=== PATIENT | female | born 1940 | race American Indian/Alaskan Native ===

== ENCOUNTER 2016-12-19 22:02 | Inpatient (IN) | payer MEDICARE ==
[2016-12-19 23:41] LABS: Basophils % (Auto) 0.6 % (0.0-1.8); Eosinophils % (Auto) 0.9 % (0.0-4.3); Hematocrit 36.4 % (30.3-42.9); Hemoglobin 11.6 gm/dl (10.1-14.3); Mean Corpuscular HGB Conc 32 % (30-34); Mean Corpuscular Hemoglobin 30 pg (28-32); Mean Corpuscular Volume 93 fl (79-97); Red Blood Count 3.92 M/mm3 (3.65-5.03); Red Cell Distribution Width 15.4 % (13.2-15.2); White Blood Count 11.9 K/mm3 (4.5-11.0)
[2016-12-20] MEDS ORDERED: MORPHINE IV ONE (00:11)
--- NOTE | 2016-12-20 00:13 | Emergency Department Report ---
HPI - General Chief Complaint: Weakness Time Seen by Provider: 12/19/16 22:23 - HPI HPI: The patient is a 76-year-old female with a history of diabetes who presents for evaluation of generalized weakness and abdominal pain. The patient reports 1 week of progressive generalized weakness, exacerbated with exertion or physical activity, moderate to severe, improved with rest. She has secondary complaint of epigastric and periumbilical abdominal pain, moderate to severe, squeezing and cramping in quality, worse with movement of the abdomen. Family members reported to EMS that the patient exhibited some drooling and appeared change from her baseline mental status possibly 2-3 hours prior to arrival. The patient denies fever, headache, neck pain, chest pain, dyspnea, paresthesias, lateralizing motor deficit, diarrhea, blood in the stool, dark tarry stool, dysuria, hematuria, flank pain, or other focal neurological deficit. ED Past Medical Hx - Past Medical History Previous Medical History?: Yes Hx Diabetes: Yes Hx GERD: Yes Hx Renal Disease: Yes Hx Psychiatric Treatment: Yes (Dementia, Parkinson's, Schizophrenia) Additional medical history: Hyperlipidemia, - Surgical History Past Surgical History?: Yes Additional Surgical History: Hysty - Social History Smoking Status: Never Smoker Substance Use Type: None ED Review of Systems ROS: Stated complaint: GENERAL WEAKNESS Other details as noted in HPI Constitutional: reports weakness, denies: fever ENT: denies: throat or neck pain Respiratory: denies: cough, shortness of breath Cardiovascular: denies: chest pain Endocrine: denies unexplained weight loss or gain Gastrointestinal: reports abdominal pain, nausea Genitourinary: denies: dysuria Musculoskeletal: denies: leg swelling Skin: denies: rash Neurological: denies: headache Hematological/Lymphatic: denies: easy bleeding or easy bruising Psych: denies sadness or hopelessness Physical Exam - Physical Exam Vital Signs: Vital Signs 12/19/16 12/19/16 22:16 22:40 Temperature 98.1 F Pulse Rate 58 L Respiratory 12 16 Rate Blood Pressure 95/76 Blood Pressure 95/76 [Right] O2 Sat by Pulse 100 99 Oximetry Physical Exam: General: well-nourished, well-developed, no acute distress Head: Normocephalic, atraumatic Eyes: normal sclera ENT: Mucous membranes are pale and dry, EOMI, PERRL Neck: No neck stiffness, no cervical adenopathy Respiratory: Breath sounds equal bilaterally, no wheezing, rales, or rhonchi Cardio: S1 and S2 present, no murmurs, rubs, gallops, capillary refill is delayed Abdomen: Normoactive bowel sounds, soft abdomen, epigastric and periumbilical tenderness to palpation present, no rigidity, no guarding or rebound tenderness , no pain in McBurney's point Musc: No pitting edema Skin: No rash Neuro: Alert and oriented to self and situation, no facial drooping, normal speech, no pronator drift, no obvious gross motor or sensation deficit in the arms or legs, reflexes 2+ symmetric on DTR testing, no coordination deficit with finger to nose testing, no obvious gross neuro deficit Psych: Normal affect ED Course Vital Signs 12/19/16 12/19/16 22:16 22:40 Temperature 98.1 F Pulse Rate 58 L Respiratory 12 16 Rate Blood Pressure 95/76 Blood Pressure 95/76 [Right] O2 Sat by Pulse 100 99 Oximetry ED Medical Decision Making - Lab Data Result diagrams: 12/19/16 23:17 12/19/16 23:17 - Medical Decision Making The patient was seen and examined by myself. The patient is placed on a surveillance system monitor and continuous pulse ox. On initial evaluation, the patient was found to be in no distress. Evaluation orders were placed. EKG was grossly unremarkable. X-ray of the chest is negative for acute cardiopulmonary disease process. Lab results reveal elevated creatinine level of 2, elevated BUNs 45, elevated potassium level 5.1, mild leukocytosis, WBC 11.9, low venous pH of 7.24. CAT scan of the head exhibits chronic ischemic change, and otherwise is negative for acute intracranial disease process. The patient is given 1 L normal saline fluid bolus for treatment of dehydration, mild hyperkalemia, and renal insufficiency. The on-call hospitalist service was contacted. They agreed to admit the patient for further treatment and close monitoring. The ED admit order was placed. The patient was admitted in guarded condition. Critical care attestation.: If time is entered above; I have spent that time in minutes in the direct care of this critically ill patient, excluding procedure time. ED Disposition Clinical Impression: Dehydration, Generalized weakness, Abdominal pain, acute, epigastric, Acute hyperkalemia ARF (acute renal failure) Qualifiers: Acute renal failure type: unspecified Qualified Code(s): N17.9 - Acute kidney failure, unspecified Disposition: OP ADMITTED IP TO THIS HOSP Is pt being admited?: Yes Does the pt Need Aspirin: Yes Condition: Fair Referrals: PRIMARY CARE, [Primary Care Provider] - 3-5 Days Time of Disposition: 00:13
--- NOTE | 2016-12-20 00:16 | Cat Scan Report ---
FINAL REPORT EXAM: CT HEAD/BRAIN WO CON HISTORY: headache TECHNIQUE: Noncontrast CT axial images of the brain. PRIORS: None. FINDINGS: No parenchymal mass, mass effect, hemorrhage, midline shift or hydrocephalus. No evidence of acute cortical infarct. No abnormal, extra-axial fluid or air collection. Mild, patchy low density in the periventricular and subcortical white matter is nonspecific, but may relate to chronic small vessel ischemic change. Age-related volume loss. Osseous calvarium grossly intact. IMPRESSION: 1. No acute intracranial findings. 2. Chronic ischemic and atrophic changes.
[2016-12-20 00:22] LABS: Alanine Aminotransferase 9 units/L (7-56); Albumin 4.1 g/dL (3.9-5); Albumin/Globulin Ratio 1.3 %; Alkaline Phosphatase 79 units/L (35-129); Anion Gap 17 mmol/L; Bilirubin,Total < 0.2 mg/dL (0.1-1.2); Blood Urea Nitrogen 45 mg/dL (7-17); Calcium 9.2 mg/dL (8.4-10.2); Carbon Dioxide 22 mmol/L (22-30); Chloride 104.8 mmol/L (98-107); Glucose 134 mg/dL (65-100); Potassium 5.1 mmol/L (3.6-5.0); Sodium 139 mmol/L (137-145); Total Protein 7.3 g/dL (6.3-8.2)
[2016-12-20] MEDS ORDERED: BABY ASPIRIN PO ONE (01:03)
[2016-12-20 01:10] LABS: Bacteria,Urine 1+ /HPF (Negative); Bilirubin,Urine NEG (Negative); Blood,Urine NEG (Negative); Ketones,Urine NEG (Negative); Leukocyte Esterase,Urine TR (Negative); Mucus,Urine FEW /HPF; Nitrite,Urine NEG (Negative); Protein,Urine <15 mg/dL mg/dL (Negative); Urobilinogen,Urine < 2.0 mg/dL (<2.0); WBC,Urine < 1.0 /HPF (0.0-6.0)
[2016-12-20 01:11] LABS: Platelet Count 141 K/mm3 (140-440)
--- NOTE | 2016-12-20 01:53 | History and Physical Report ---
History of Present Illness Date of examination: 12/20/16 Date of admission: 12/20/16 Chief complaint: Altered mental status History of present illness: This is a 76 y/o female with h/o dementia, CKD stage 3 resides at personal alf presented with c/o alteration of mental status and for evaluation of worsening generalized weakness. Family members reported to EMS that the patient exhibited some drooling of saliva and appeared to have change in her mental status from her baseline possibly 2-3 hours prior to arrival. Patient noted to be confused for some time and there was a concern for seizure. Patient 's daughter was at bedside and most of the history was obtained from the daughter. She and daughter also mentioned that she is not happy about the service of personal alf and if patient does qualify she would like to place the patient at half-way. Patient had a CT of the head in the ER which was unremarkable. Initial lab workup showed slightly elevated potassium and creatinine of 2.0, and unremarkable UA. Past medical History: h/o Alzheimer dementia, chronic physical debility, hypertension, CKD, diabetes mellitus type 2 on insulin, history of Parkinson. Past surgical History: s/p bilateral knee surgery. Social History: Lives at personal alf, denies any smoking, drinking and elicit drug abuse. Family History: Significant for colon cancer running maternal side of the family. Review of System: Constitutional: no fever, no chills, no weight loss Ears, eyes, nose, mouth and throat: no nasal congestion, no nasal discharge, no sinus pressure, no vision change, no red eye. Neck: No neck pain or rigidity. Cardiovascular: No chest pain, no orthopnea, no palpitations, no leg swelling Respiratory: No shortness of breath, no cough, no congestion, no wheezing Gastrointestinal: no abdominal pain, no nausea, no vomiting Genitourinary : no dysuria, no hematuria Musculoskeletal: no joint swelling or muscle ache Integumentary: no rash, no pruritis Neurological: no parathesias, no numbness, no tingling Endocrine: no cold or heat intolerance, no polyuria or polydipsia Hematologic/Lymphatic: no easy bruising, no easy bleeding, no gland swelling Allergic/Immunologic: no urticaria, no angioedema. Medications and Allergies Allergies Allergy/AdvReac Type Severity Reaction Status Date / Time No Known Allergies Allergy Unverified 12/19/16 22:23 Home Medications Medication Instructions Recorded Confirmed Last Taken Type Amlodipine Besylate [Norvasc] 5 mg PO DAILY 12/20/16 12/20/16 Unknown History Aspirin [Aspirin BABY CHEW TAB] 81 mg PO QDAY 12/20/16 12/20/16 Unknown History Bisoprolol/Hctz [Ziac 10-6.25] 1 each PO DAILY 12/20/16 12/20/16 Unknown History Carbidopa/Levodopa [Carbidopa-Levo 1 each PO DAILY 12/20/16 12/20/16 Unknown History 25-100 mg Odt] Donepezil HCl 5 mg PO DAILY 12/20/16 12/20/16 Unknown History Fluticasone [Flonase] 1 spray NS BID 12/20/16 12/20/16 Unknown History Insulin Glargine [Lantus] 30 units SQ QHS 12/20/16 12/20/16 Unknown History Insulin Lispro [HumaLOG VIAL] 8 units SQ TID 12/20/16 12/20/16 Unknown History Lisinopril [Zestril] 20 mg PO QDAY 12/20/16 12/20/16 Unknown History Simvastatin [Zocor TAB] 40 mg PO QHS 12/20/16 12/20/16 Unknown History Ziprasidone [Geodon] 60 mg PO BID 12/20/16 12/20/16 Unknown History traZODone [Desyrel] 50 mg PO QHS 12/20/16 12/20/16 Unknown History Exam - Physical Exam Narrative exam: GENERAL: This is an elderly -[place] female lying on bed appeared to be in no discomfort. HEENT: Normocephalic. Atraumatic. Extraocular motions are intact. No conjunctival congestion or icterus. Patient has moist mucous membranes. External auditory canal and nares patent bilaterally. NECK: Supple. Trachea midline. No JVD, thyromagaly or lymphadenopathy. CHEST/LUNGS: Clear to auscultated bilaterally. There is no respiratory distress noted, breathing nonlabored. No wheezes crackles or rhonchi. HEART/CARDIOVASCULAR: Regular in rate and rhythm. PMI at the apex. There is no gallop rub or murmur. ABDOMEN: Abdomen is soft, nontender. Patient has normal bowel sounds. There is no abdominal distention. No organomagaly or rigidity. SKIN: There is no rash, no erythrema. There is no diaphoresis. Warm and dry. NEUROLOGY: The patient is awake, alert, and oriented to place and person. The patient is cooperative. The patient has normal speech. No focal motor deficit. MUSCULOSKELETAL: No joint effusion or tenderness. Muscle strength equal bilaterally. No muscle wasting. EXTRIMITY: No edema, cyanosis or clubbing. PSYCH: No depression or anxiety noted. Cooperative. - Constitutional Vitals: Temp Pulse Resp BP Pulse Ox 98.1 F 58 L 18 95/76 99 12/19/16 22:16 12/19/16 22:16 12/20/16 00:44 12/19/16 22:16 12/19/16 22:40 Results - Labs CBC & Chem 7: 12/19/16 23:17 12/19/16 23:17 Labs: Laboratory Last Values WBC 11.9 K/mm3 (4.5-11.0) H 12/19/16 23: RBC 3.92 M/mm3 (3.65-5.03) 12/19/16 23: Hgb 11.6 gm/dl (10.1-14.3) 12/19/16 23:17 Hct 36.4 % (30.3-42.9) 12/19/16 23: MCV 93 fl (79-97) 12/19/16 23:17 MCH 30 pg (28-32) 12/19/16 23: MCHC 32 % (30-34) 12/19/16 23: RDW 15.4 % (13.2-15.2) H 12/19/16 23:17 Plt Count 141 K/mm3 (140-440) 12/19/16 23:17 Lymph % (Auto) 18.3 % (13.4-35.0) 12/19/16 23: [place] % (Auto) 3.8 % (0.0-7.3) 12/19/16: Eos % (Auto) 0.9 % (0.0-4.3) 12/19/16 23:17 Baso % (Auto) 0.6 % (0.0-1.8) 12/19/16 23: Lymph # 2.2 K/mm3 (1.2-5.4) 02/11/17 23:17 [place] # 0.5 K/mm3 (0.0-0.8) 12/19/16 23:17 Eos # 0.1 K/mm3 (0.0-0.4) 12/19/16 23:17 Baso # 0.1 K/mm3 (0.0-0.1) 12/19/16 23:17 Seg Neutrophils % 76.4 % (40.0-70.0) H 12/19/16 23:17 Seg Neutrophils # 9.1 K/mm3 (1.8-7.7) H 12/19/16 23:17 VBG pH 7.284 (7.320-7.420) L 12/19/16 23:17 Sodium 139 mmol/L (137-145) 12/19/16 23:17 Potassium 5.1 mmol/L (3.6-5.0) H 12/19/16 23:17 Chloride 104.8 mmol/L (98-107) 12/19/16 23:17 Carbon Dioxide 22 mmol/L (22-30) 12/19/16 23:17 Anion Gap 17 mmol/L 12/19/16 23:17 BUN 45 mg/dL (7-17) H 12/19/16 23:17 Creatinine 2.0 mg/dL (0.7-1.2) H 12/19/16 23:17 Estimated GFR 29 ml/min 12/19/16 23:17 BUN/Creatinine Ratio 22.50 % 12/19/16 23:17 Glucose 134 mg/dL (65-100) H 12/19/16 23:17 Lactic Acid 1.2 mmol/L (0.7-2.0) 12/19/16 23:17 Calcium 9.2 mg/dL (8.4-10.2) 12/19/16 23:17 Total Bilirubin < 0.2 mg/dL (0.1-1.2) 12/19/16 23:17 AST 13 units/L (5-40) 12/19/16 23:17 ALT 9 units/L (7-56) 12/19/16 23:17 Alkaline Phosphatase 79 units/L (35-129) 12/19/16 23:17 NT-Pro-B Natriuret Pep 106.4 pg/mL (0-900) 12/19/16 23:17 Total Protein 7.3 g/dL (6.3-8.2) 12/19/16 23:17 Albumin 4.1 g/dL (3.9-5) 12/19/16 23:17 Albumin/Globulin Ratio 1.3 % 12/19/16 23:17 Urine Color Yellow (Yellow) 12/20/16 00:08 Urine Turbidity Clear (Clear) 12/20/16 00:08 Urine pH 5.0 (5.0-7.0) 12/20/16 00:08 Ur Specific [place] 1.013 (1.003-1.030) 12/20/16 00:08 Urine Protein <15 mg/dl mg/dL (Negative) 12/20/16 00:08 Urine Glucose (UA) Neg mg/dL (Negative) 12/20/16 00:08 Urine Ketones Neg mg/dL (Negative) 12/20/16 00:08 Urine Blood Neg (Negative) 12/20/16 00:08 Urine Nitrite Neg (Negative) 12/20/16 00:08 Urine Bilirubin Neg (Negative) 12/20/16 00:08 Urine Urobilinogen < 2.0 mg/dL (<2.0) 12/20/16 00:08 Ur Leukocyte Esterase Tr (Negative) 12/20/16 00:08 Urine WBC (Auto) < 1.0 /HPF (0.0-6.0) 12/20/16 00:08 Urine RBC (Auto) 1.0 /HPF (0.0-6.0) 12/20/16 00:08 U Epithel Cells (Auto) < 1.0 /HPF (0-13.0) 12/20/16 00:08 Urine Bacteria (Auto) 1+ /HPF (Negative) 12/20/16 00:08 Amorphous Crystals 1+ 12/20/16 00:08 Hyaline Casts 4 /LPF 12/20/16 00:08 Urine Mucus Few /HPF 12/20/16 00:08 Ketones 2.0 mg/dL (0.2-2.8) 12/19/16 23:17 Assessment and Plan Assessment and plan: Possible seizure CELIA on CKD Hyperkalemia likely due to CKD h/o Alzheimer dementia Hypertension, benign essential Diabetes mellitus type 2 on insulin History of Parkinson disease DO NOT RESUSCITATE CODE STATUS Plan: Admit to medicine Get EEG, neurologic consult Resume all meds, ADA diet, subcutaneous insulin Gentle IV fluid hydration, hold BP meds Kayexalate when necessary a potassium greater than 5.2 If creatinine continued to trend up consider nephrology consultation Supportive care, renal diet 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
[2016-12-20] MEDS ORDERED: NACL 0.45% 1000 ML 1,000 ML IV SCH (03:00)
[2016-12-20] MEDS ORDERED: INSULIN LISPRO 8 UNIT SQ SCH (08:00)
--- NOTE | 2016-12-20 09:12 | XRay Report ---
AP CHEST : 12/19/16 22:02:00 CLINICAL: Chest pain. COMPARISON:None FINDINGS: Cardiomegaly and mild central vascular congestion. The lungs are normally expanded and clear. The bones and soft tissues are unremarkable. IMPRESSION: Cardiomegaly and pulmonary venous hypertension.
--- NOTE | 2016-12-20 09:35 | Event Note ---
Date: 12/20/16 Patient seen and examined today, no acute distress. she is tolerating meal. slight left sided facial droop noted. ?chronicity. call placed to daughter to obtain more information. MRI brain to r/o infarction.
[2016-12-20] MEDS: BABY ASPIRIN PO SCH (09:36)
[2016-12-20] MEDS: NOVOLOG SUB-Q SCH ×3 (09:37→16:32)
[2016-12-20] MEDS: ARICEPT PO SCH (09:37)
[2016-12-20] MEDS: SINEMET PO SCH (09:37)
--- NOTE | 2016-12-20 09:37 | Admit Criteria Form ---
Admission Criteria Documentation: RENAL FAILURE, ACUTE Clinical Indications for Admission to Inpatient Care ( Place 'X' for any and all applicable criteria): Admission is indicated for ALL (if I & II) or III of the following [A](2)(3)(4)( 5)(6)(7): [ ]I. Acute renal failure as indicated by ANY ONE of the following: [ ]a) A 3-fold rise in serum creatinine from baseline [ ]b) Serum creatinine greater than 4 mg/dL (354 micromoles/L) with an acute rise greater than 0.5 mg/dL (44.2 micromoles/L) [ ]c) Reduction of more than 75% in estimated glomerular filtration rate from baseline [ ]d) Estimated glomerular filtration rate less than 35 mL/min/1.73m2 (0.59mL/sec/1.73m2)in a child up to 18 years of age [ ]e) Anuria indicated by ALL of the following: [ ]i) Adequate volume status [ ]ii) Cessation of urine output indicated by ANY ONE of the following: [ ]1) Urine output less than 0.3 mL/kg/hr for 24 hours [ ]2) Anuria (urine output less than 0.1 mL/kg/ hr) for 12 hours [ ] II. Renal failure cannot be managed in an outpatient setting or observational care setting as indicating by ANY ONE of the following: [ ]a) Altered mental status that is severe or persistent [ ]b) Volume overload or Respiratory distress (eg, clinically significant pulmonary edema) that is severe or persistent [ ]c) Cardiac arrhythmias of immediate concern [ ]d) Hemodynamic instability [ ]e) Clinically significant electrolyte abnormality that requires inpatient care (eg, hyperkalemia with severe ECG findings)[B] [ ]f) Clinically significant metabolic abnormality (eg, acidosis) that is severe or persistent [ ]g) Acute treatment of renal failure (eg, renal replacement therapy) not feasible or appropriate in observational care setting [ ]h) Clinical situation too unstable or uncertain (eg, inadequate urine output, ongoing decline in renal function, etiology unclear) [ ]i) Necessary support and caregiver ability to comply with outpatient treatment cannot be arranged in observation care timeframe (eg, within 24 hours) [ ]j) Other significant finding or clinical condition judged not to be within scope of observation care [X ]III.General contraindications and/or Inappropriate clinical situations for Observational Care in patients with Acute Renal Failure, when ANY ONE of the following is required: [X ]a) Prediction of prolongation of LOS based on ANY ONE of the following may be considered as a contraindication for observational care 2, 3, 4, 5, 6, 7, 8 , 9, 10, 11 [X ]i) Age > 65 yrs. [ ]ii) Patient arriving by ambulance [ ]iii) Patient with high acuity [ ]iv) Patient requiring vital sign monitoring [ ]v) Patient on IV medication [ ]b) Systolic blood pressures 180mmHg 3,12 [ ]c) Patient with altered mental status including delirium and other alteration of consciousness, (3) [ ]d) Patient whose discharge disposition will be to a prison home or rehabilitation home should not be managed in Emergency Department Observation Unit. CMS rule requires 3 days hospital stay before such placement.3,13 [ ]e) Patient with failure to thrive due to broad array of etiologies 3, 16,17 [ ]f) Inability to ambulate 3,14 Extended stay beyond goal length of stay may be needed for(13) [ ]a) Continuing uremic complications [ ]b) Care for comorbidities [ ]c) acute renal failure [ ]d) Need for dialysis The original [employer] content created by [employer] has been revised. The portions of the content which have been revised are identified through the use of italic text or in bold, and [facility] has neither reviewed nor approved the modified material. All other unmodified content is copyright [facility]. Please see references footnoted in the original [facility] edition 2016 Admission Criteria Met: Yes
[2016-12-20] MEDS: GEODON PO SCH ×2 (09:39→21:40)
[2016-12-20] MEDS: FLONASE NS SCH ×2 (09:39→22:00)
[2016-12-20] MEDS ORDERED: ZIAC 10-6.25 PO SCH (10:00)
[2016-12-20] MEDS ORDERED: NON-FORMULARY (Amlodipine Besylate [Norvasc] 5 MG) PO SCH (10:00)
[2016-12-20] MEDS ORDERED: ZESTRIL PO SCH (10:00)
[2016-12-20] MEDS ORDERED: PNEUMOVAX 23 IM ONE (12:00)
[2016-12-20] MEDS ORDERED: FLUARIX QUAD 2016-2017(36 MOS+) IM ONE (12:00)
--- NOTE | 2016-12-20 13:16 | Magnetic Resonance Report ---
MRA HEAD WITHOUT CONTRAST: 12/20/16 01:38:00 CLINICAL: Facial droop. TECHNIQUE: Axial 3-D [id number] MR angiography of the [place] with review of axial source images. 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 Symmetric blood flow in the anterior, middle and posterior cerebral arteries. Normal basilar and right vertebral arteries. The left vertebral artery is small. IMPRESSION: A small left vertebral artery suggesting a significant left vertebral artery stenosis. Otherwise normal study.
--- NOTE | 2016-12-20 15:51 | Consultation ---
History of Present Illness - Reason for Consult Consult date: 12/20/16 ams - History of Present Illness thanks for consult reviewed the chart and went over imaging studies will follow up Thanks for consult Medications and Allergies Allergies Allergy/AdvReac Type Severity Reaction Status Date / Time No Known Allergies Allergy Unverified 12/19/16 22:23 Home Medications Medication Instructions Recorded Confirmed Last Taken Type Amlodipine Besylate [Norvasc] 5 mg PO DAILY 12/20/16 12/20/16 Unknown History Aspirin [Aspirin BABY CHEW TAB] 81 mg PO QDAY 12/20/16 12/20/16 Unknown History Bisoprolol/Hctz [Ziac 10-6.25] 1 each PO DAILY 12/20/16 12/20/16 Unknown History Carbidopa/Levodopa [Carbidopa-Levo 1 each PO DAILY 12/20/16 12/20/16 Unknown History 25-100 mg Odt] Donepezil HCl 5 mg PO DAILY 12/20/16 12/20/16 Unknown History Fluticasone [Flonase] 1 spray NS BID 12/20/16 12/20/16 Unknown History Insulin Glargine [Lantus] 30 units SQ QHS 12/20/16 12/20/16 Unknown History Insulin Lispro [HumaLOG VIAL] 8 units SQ TID 12/20/16 12/20/16 Unknown History Lisinopril [Zestril] 20 mg PO QDAY 12/20/16 12/20/16 Unknown History Simvastatin [Zocor TAB] 40 mg PO QHS 12/20/16 12/20/16 Unknown History Ziprasidone [Geodon] 60 mg PO BID 12/20/16 12/20/16 Unknown History traZODone [Desyrel] 50 mg PO QHS 12/20/16 12/20/16 Unknown History Active Meds: Active Medications Aspirin (Baby Aspirin) 81 mg PO QDAY [facility] Last Admin: 12/20/16 09:36 Dose: 81 mg Carbidopa/Levodopa (Sinemet) 1 each PO DAILY [facility] Last Admin: 12/20/16 09:37 Dose: 1 each Donepezil HCl (Aricept) 5 mg PO DAILY [facility] Last Admin: 12/20/16 09:37 Dose: 5 mg Fluticasone Propionate (Flonase) 50 mcg NS BID [facility] Last Admin: 12/20/16 09:39 Dose: 50 mcg Sodium Chloride (Nacl 0.45% 1000 Ml) 1,000 mls @ 125 mls/hr IV DIRECT ERNESTINA Insulin Aspart (Novolog) 8 units SUB-Q AC [facility] Last Admin: 12/20/16 13:48 Dose: 8 units Insulin Detemir (Levemir) 30 units SUB-Q QHS [facility] Simvastatin (Zocor) 40 mg PO QHS [facility] Trazodone HCl (Desyrel) 50 mg PO QHS [facility] Ziprasidone (Geodon) 60 mg PO BID [facility] Last Admin: 12/20/16 09:39 Dose: 60 mg Exam - Constitutional Vitals: Temp Pulse Resp BP Pulse Ox 98.5 F 56 L 20 162/69 99 12/20/16 07:50 12/20/16 11:02 12/20/16 07:50 12/20/16 07:50 12/20/16 07:50 Results - Labs CBC & Chem 7: 12/19/16 23:17 12/19/16 23:17 Labs: Abnormal lab results 12/20/16 Range/Units 13:47 POC Glucose 116 H (70-105)
[2016-12-20] MEDS: ZOCOR PO SCH (21:39)
[2016-12-20] MEDS: DESYREL PO SCH (21:40)
[2016-12-20] MEDS ORDERED: NON-FORMULARY (Insulin Glargine 30 UNITS) SQ SCH (22:00)
[2016-12-20] MEDS: LEVEMIR SUB-Q SCH (22:17)
--- NOTE | 2016-12-20 23:20 | Admit Criteria Form ---
Admission Criteria Documentation: RENAL FAILURE, CHRONIC Clinical Indications for Admission to Inpatient Care (Place 'X' for any and all applicable criteria): Admission is indicated for ANY ONE of the following (1)(2)(3)(4)(5): [X ]I. Inpatient admission required rather than observation care (Use Renal Failure, Chronic: Observation Care Criteria as appropriate) because of ANY ONE of the following: [ ]a) Volume overload or uremic symptoms (eg, clinically significant pulmonary edema, hypertension, pericarditis, acidosis) too severe for, or not responsive (eg, for over 24 hours) to emergency department or observation care dialysis or treatment regimen (11) [ ]b) Hemodynamic instability that is severe or persistent [ ]c) Respiratory distress that is severe or persistent (11) [ X]d) Clinically significant electrolyte abnormality that requires inpatient care (eg,hyperkalemia with severe ECG findings)[B] [ ]e) Supplement O2 or respiratory therapy for over 24hrs that is performable only in acute inpatient setting [ ]f) Continuous IV infusion of anticoagulation, platelet inhibitor, vasoactive, or Antiarrhythmic medication (15), [ ]g) Pulmonary artery catheter monitoring [ ]h) Temporary pacemaker placement [ ]i) Emergent pericardiocentesis [ X]j) Other condition, treatment or monitoring requiring inpatient admission [ ]II. Unexplained syncope [A] [ ]III. Recurrent seizures [ ]IV. Severe infections not treatable in outpatient setting (eg, peritonitis)(9 ) [ ]V. Cardiac arrhythmias of immediate concern [ ]. Encephalopathy [ ]VII.Bleeding abnormalities (eg, platelet dysfunction) with active (eg, gastrointestinal) bleeding Extended stay beyond goal length of stay may be needed for (3)(4)(35)(36): [ ]a) Continuing uremic complications [ ]b) Comorbidities or complications The original [employer] content created by [employer] has been revised. The portions of the content which have been revised are identified through the use of italic text or in bold, and [facility] has neither reviewed nor approved the modified material. All other unmodified content is copyright [employer]. Please see references footnoted in the original [facility] edition 2016 Admission Criteria Met: Yes
[2016-12-21 04:43] LABS: Hematocrit 33.7 % (30.3-42.9); Hemoglobin 10.9 gm/dl (10.1-14.3); Mean Corpuscular HGB Conc 32 % (30-34); Mean Corpuscular Hemoglobin 29 pg (28-32); Mean Corpuscular Volume 91 fl (79-97); Platelet Count 200 K/mm3 (140-440); Red Blood Count 3.72 M/mm3 (3.65-5.03); Red Cell Distribution Width 15.3 % (13.2-15.2); White Blood Count 6.5 K/mm3 (4.5-11.0)
[2016-12-21 04:57] LABS: Calcium 8.6 mg/dL (8.4-10.2); Chloride 106.7 mmol/L (98-107); Potassium 4.7 mmol/L (3.6-5.0)
[2016-12-21] MEDS: NOVOLOG SUB-Q SCH ×3 (08:00→15:38)
--- NOTE | 2016-12-21 10:05 | Discharge Summary ---
Providers - Providers Date of Admission: 12/20/16 01:38 Date of discharge: 12/23/16 Attending physician: ROLF GASPAR MD 12/20/16 02:13 Consult to Physician [CONS] Routine Consulting Provider: ZACH MANCIA Reason For Exam: seizure Place consult to:: oncology physician neurology Notified:: Chasidy TRINH Phone number called:: Was contact made?: Yes If yes, spoke with:: [facility] Time called:: 08:12 12/20/16 02:14 Consult to Case Management [CONS] Routine Services Needed at Discharge: Trailer Truck Driver Notified:: case management Phone number called:: message left Was contact made?: Yes Additional Physician Instructions: placement Primary care physician: WALLPAPERER HELPER Hospitalization Reason for admission: altered mental status Condition: Stable Hospital course: This is a 76 y/o female with h/o dementia, CKD stage 3 resides at [facility] presented with c/o alteration of mental status and for evaluation of worsening generalized weakness. Family members reported to EMS that the patient exhibited some drooling of saliva and appeared to have change in her mental status from her baseline possibly 2-3 hours prior to arrival. Patient noted to be confused for some time and there was a concern for seizure. Patient 's daughter was at bedside and most of the history was obtained from the daughter. She and daughter also mentioned that she is not happy about the service of [facility] and if patient does qualify she would like to place the patient at shelter. Patient had a CT of the head in the ER which was unremarkable. Initial lab workup showed slightly elevated potassium and creatinine of 2.0, and unremarkable UA patient was monitored was seen by neurologist and no evidence of seizure was noted on EEG except for metabolic encephalopathy likely secondary to Alzheimer. Family was advised about discharge but initially refused to come. The patient finally agreed for placement. Patient currently stable for discharge. Discharge diagnosis Metabolic encephalopathy likely secondary to dementia. Slurred speech-rule out TIA CELIA on CKD- POA, improving. Hyperkalemia likely due to CKD h/o Alzheimer dementia Hypertension, benign essential Diabetes mellitus type 2 on insulin History of Parkinson disease DO NOT RESUSCITATE CODE STATUS Disposition: DC/TX SNF W [facility] CERT Time spent for discharge: 35 mins Core Measure Documentation - Palliative Care Palliative Care/ Comfort Measures: Not Applicable - Core Measures Any of the following diagnoses?: none - VTE Discharge Requirements Deep Vein Thrombosis/Pulmonary Embolism Present on Admission: No Exam - Physical Exam Narrative exam: VITAL SIGNS: Reviewed. GENERAL: The patient appeared well nourished and normally developed. Vital signs as documented. HEAD: No signs of head trauma. EYES: Pupils are equal. Extraocular motions intact. EARS: Hearing grossly intact. MOUTH: Oropharynx is normal. NECK: No adenopathy, no JVD. CHEST: Chest with clear breath sounds bilaterally. No wheezes, rales, or rhonchi. CARDIAC: Regular rate and rhythm. S1 and S2, without murmurs, gallops, or rubs. VASCULAR: No Edema. Peripheral pulses normal and equal in all extremities. ABDOMEN: Soft, without detectable tenderness. No sign of distention. No rebound or guarding, and no masses palpated. Bowel Sounds normal. MUSCULOSKELETAL: Good range of motion of all major joints. Extremities without clubbing, cyanosis or edema. NEUROLOGIC EXAM: Alert and oriented x 3. No focal sensory or strength deficits. Speech normal. Follows commands. PSYCHIATRIC: Mood normal. SKIN: No rash or lesions. - Constitutional Vitals: Temp Pulse Resp BP Pulse Ox 97.7 F 54 L 20 161/79 99 12/21/16 07:17 12/21/16 07:17 12/21/16 07:17 12/21/16 07:17 12/21/16 07:17 Plan Activity: advance as tolerated, fall precautions Diet: low fat Special Instructions: physical therapy, occupational therapy Follow up with: CHEPE VILLELA MD [Primary Care Provider] - 3-5 Days ZACH MANCIA MD [Staff Physician] - 7 Days
[2016-12-21] MEDS: SINEMET PO SCH (10:25)
[2016-12-21] MEDS: ARICEPT PO SCH (10:25)
[2016-12-21] MEDS: FLONASE NS SCH ×2 (10:26→21:52)
[2016-12-21] MEDS: GEODON PO SCH ×2 (10:26→21:52)
[2016-12-21] MEDS: BABY ASPIRIN PO SCH (10:32)
--- NOTE | 2016-12-21 16:12 | Progress Note ---
Assessment and Plan Assessment and plan: This is a 76 y/o female with h/o dementia, CKD stage 3 resides at [facility] presented with c/o alteration of mental status and for evaluation of worsening generalized weakness. Family members reported to EMS that the patient exhibited some drooling of saliva and appeared to have change in her mental status from her baseline possibly 2-3 hours prior to arrival. Patient noted to be confused for some time and there was a concern for seizure. Patient 's daughter was at bedside and most of the history was obtained from the daughter. She and daughter also mentioned that she is not happy about the service of [facility] and if patient does qualify she would like to place the patient at long term. Patient had a CT of the head in the ER which was unremarkable. Initial lab workup showed slightly elevated potassium and creatinine of 2.0, and unremarkable UA Possible seizure-none so far Slurred speech-rule out TIA CELIA on CKD- POA, improving. Hyperkalemia likely due to CKD h/o Alzheimer dementia Hypertension, benign essential Diabetes mellitus type 2 on insulin History of Parkinson disease DO NOT RESUSCITATE CODE STATUS Plan: Neurology input appreciated. No further seizure noted today. We did call the family member informed her of the discharge. She refuses to complete her mother today states that we should find another facility for the mother to go to. Get EEG Resume all meds, ADA diet, subcutaneous insulin Gentle IV fluid hydration, hold BP meds Supportive care, renal diet machine adjuster leader case trim consultation for placement to long term per family wish History Interval history: Patient seen and examined this morning in no acute distress. She is speaking with slurred speech today. She denies any pain. Denies any nausea or vomiting. Nursing staff did not report any adverse event over the past 24-48 hours. She is tolerating her diet. Hospitalist Physical - Physical exam Narrative exam: VITAL SIGNS: Reviewed. GENERAL: The patient appeared well nourished and normally developed. Vital signs as documented. HEAD: No signs of head trauma. EYES: Pupils are equal. Extraocular motions intact. EARS: Hearing grossly intact. MOUTH: Oropharynx is normal. NECK: No adenopathy, no JVD. CHEST: Chest with clear breath sounds bilaterally. No wheezes, rales, or rhonchi. CARDIAC: Regular rate and rhythm. S1 and S2, without murmurs, gallops, or rubs. VASCULAR: No Edema. Peripheral pulses normal and equal in all extremities. ABDOMEN: Soft, without detectable tenderness. No sign of distention. No rebound or guarding, and no masses palpated. Bowel Sounds normal. MUSCULOSKELETAL: Good range of motion of all major joints. Extremities without clubbing, cyanosis or edema. NEUROLOGIC EXAM: Alert and oriented x 3. No focal sensory or strength deficits. Speech normal. Follows commands. PSYCHIATRIC: Mood normal. SKIN: No rash or lesions. - Constitutional Vitals: Temp Pulse Resp BP Pulse Ox 97.6 F 63 20 186/73 100 12/21/16 15:28 12/21/16 15:28 12/21/16 15:28 12/21/16 15:28 12/21/16 15:28 Results - Labs CBC & Chem 7: 12/21/16 03:54 12/21/16 03:54 Labs: Laboratory Last Values WBC 6.5 K/mm3 (4.5-11.0) 12/21/16 03:54 RBC 3.72 M/mm3 (3.65-5.03) 12/21/16 03:54 Hgb 10.9 gm/dl (10.1-14.3) 12/21/16 03:54 Hct 33.7 % (30.3-42.9) 12/21/16 03:54 MCV 91 fl (79-97) 12/21/16 03:54 MCH 29 pg (28-32) 12/21/16 03:54 MCHC 32 % (30-34) 12/21/16 03:54 RDW 15.3 % (13.2-15.2) H 12/21/16 03:54 Plt Count 200 K/mm3 (140-440) 12/21/16 03:54 Lymph % (Auto) 18.3 % (13.4-35.0) 12/19/16 23:17 [place] % (Auto) 3.8 % (0.0-7.3) 12/19/16 23:17 Eos % (Auto) 0.9 % (0.0-4.3) 12/19/16 23:17 Baso % (Auto) 0.6 % (0.0-1.8) 12/19/16 23:17 Lymph # 2.2 K/mm3 (1.2-5.4) 12/19/16 23:17 [place] # 0.5 K/mm3 (0.0-0.8) 12/19/16 23:17 Eos # 0.1 K/mm3 (0.0-0.4) 12/19/16 23:17 Baso # 0.1 K/mm3 (0.0-0.1) 12/19/16 23:17 Seg Neutrophils % 76.4 % (40.0-70.0) H 12/19/16 23:17 Seg Neutrophils # 9.1 K/mm3 (1.8-7.7) H 12/19/16 23:17 VBG pH 7.284 (7.320-7.420) L 12/19/16 23:17 Sodium 142 mmol/L (137-145) 12/21/16 03:54 Potassium 4.7 mmol/L (3.6-5.0) 12/21/16 03:54 Chloride 106.7 mmol/L (98-107) 12/21/16 03:54 Carbon Dioxide 23 mmol/L (22-30) 12/21/16 03:54 Anion Gap 17 mmol/L 12/21/16 03:54 BUN 39 mg/dL (7-17) H 12/21/16 03:54 Creatinine 1.5 mg/dL (0.7-1.2) H 12/21/16 03:54 Estimated GFR 41 ml/min 12/21/16 03:54 BUN/Creatinine Ratio 26.00 % 12/21/16 03:54 Glucose 170 mg/dL (65-100) H 12/21/16 03:54 POC Glucose 144 (70-105) H 12/20/16 22:02 Lactic Acid 1.2 mmol/L (0.7-2.0) 12/19/16 23:17 Calcium 8.6 mg/dL (8.4-10.2) 12/21/16 03:54 Total Bilirubin < 0.2 mg/dL (0.1-1.2) 12/19/16 23:17 AST 13 units/L (5-40) 12/19/16 23:17 ALT 9 units/L (7-56) 12/19/16 23:17 Alkaline Phosphatase 79 units/L (35-129) 12/19/16 23:17 NT-Pro-B Natriuret Pep 106.4 pg/mL (0-900) 12/19/16 23:17 Total Protein 7.3 g/dL (6.3-8.2) 12/19/16 23:17 Albumin 4.1 g/dL (3.9-5) 12/19/16 23:17 Albumin/Globulin Ratio 1.3 % 12/19/16 23: Lipase 25 units/L (13-60) 12/20/16 03:27 Urine Color Yellow (Yellow) 12/20/16 00:08 Urine Turbidity Clear (Clear) 12/20/16 00:08 Urine pH 5.0 (5.0-7.0) 12/20/16 00:08 Ur Specific [place] 1.013 (1.003-1.030) 12/20/16 00:08 Urine Protein <15 mg/dl mg/dL (Negative) 12/20/16 00:08 Urine Glucose (UA) Neg mg/dL (Negative) 12/20/16 00:08 Urine Ketones Neg mg/dL (Negative) 12/20/16 00:08 Urine Blood Neg (Negative) 12/20/16 00:08 Urine Nitrite Neg (Negative) 12/20/16 00:08 Urine Bilirubin Neg (Negative) 12/20/16 00:08 Urine Urobilinogen < 2.0 mg/dL (<2.0) 12/20/16 00:08 Ur Leukocyte Esterase Tr (Negative) 12/20/16 00:08 Urine WBC (Auto) < 1.0 /HPF (0.0-6.0) 12/20/16 00:08 Urine RBC (Auto) 1.0 /HPF (0.0-6.0) 12/20/16 00:08 U Epithel Cells (Auto) < 1.0 /HPF (0-13.0) 12/20/16 00:08 Urine Bacteria (Auto) 1+ /HPF (Negative) 12/20/16 00:08 Amorphous Crystals 1+ 12/20/16 00:08 Hyaline Casts 4 /LPF 12/20/16 00:08 Urine Mucus Few /HPF 12/20/16 00:08 Ketones 2.0 mg/dL (0.2-2.8) 12/19/16 23:17 - Imaging and Cardiology MRI - head: report reviewed (left vertebral artery is small), image reviewed ( no acute pathology noted)
[2016-12-21] MEDS: ZOCOR PO SCH (21:51)
[2016-12-21] MEDS: DESYREL PO SCH (21:52)
[2016-12-21] MEDS: LEVEMIR SUB-Q SCH (21:53)
[2016-12-22] MEDS: NOVOLOG SUB-Q SCH ×3 (08:31→17:35)
--- NOTE | 2016-12-22 08:53 | Query-Altered Level of Consc. ---
Deasonia Babcock Date:___12/22/2016 Learning Analyst/CDS:__Rodolfo Dale Phone#: Exercise your independent professional judgment when responding to this query. Questions asked do not imply a particular answer is desired or expected. We greatly appreciate your clarification on this issue. Clinical Documentation States: The patient was admitted due to Altered Mental Status. "alteration of mental status"; "change in her mental status from her baseline possibly 2-3 hours prior to arrival"; "Patient noted to be confused for some time" (Dr. Fam in [place] on 12/21/2016). CELIA Clinical Findings Show: Potassium 5.1 mmol/L Creatinine 2.0 mg/dl Please provide an appropriate diagnosis clarifying the Etiology and Acuity of this clinical scenario: [ x] Metabolic Encephalopathy [ ] Toxic Encephalopathy [ ] Toxic - Metabolic Encephalopathy [ ] Septic Encephalopathy with Sepsis [ ] Septic Encephalopathy without Sepsis [ ] Acute Hepatic Encephalopathy [ ] Subacute Hepatic Encephalopathy [ ] Encephalopathy [ ] Other: [ ] Unable To Determine [ ]Comment/Explanation: Present on Admission: [x ] Yes (Y) [ ] Clinically undeterminable (W) [ ] No (N) Please also document response in your Progress Notes and/or Discharge Summary and indicate if the condition was present on admission. MTDD
--- NOTE | 2016-12-22 09:03 | Query- Renal Failure ---
Dear _GIGI Date:_12/22/2016 Cattle Feeder/CDS:_Ina Dale Phone#: Exercise your independent professional judgment when responding to query. Questions asked do not imply a particular answer is desired or expected. We greatly appreciate your clarification on this issue. Clinical Documentation States: The patient was admitted due to Altered Mental Status, CELIA. "CELIA on CKD" (Dr. Fam in [facility] on 12/20/2016). "CELIA on CKD- POA, improving" (Dr. Fam in [place] on 12/21/2016). Clinical Findings Show: 12/19 12/21 Creatinine 2.0 mg/dl 1.5 mg/ dl BUN 45 mg/dl 39 mg/ dl GFR 29 41 Please clarify if you mean: Acute Renal Failure with or due to: [ ] Tubular Necrosis [ ] Medullary Necrosis [x ] Vasomotor Nephropathy [ ] Shock Kidney [ ] Tubular Nephrosis [ ] Renal Tubular Stasis [ ] Cortical Necrosis [ ] Acute Renal Failure (unspecified) [ ] Lower Tubular Nephrosis [ ] Other: [ ] Not Applicable Present on Admission: [x ] Yes (Y) [ ] Clinically undeterminable (W) [ ] No (N) Please also document response in your Progress Notes and/or Discharge Summary and indicate if the condition was present on admission. MTDD
[2016-12-22] MEDS: BABY ASPIRIN PO SCH (09:32)
[2016-12-22] MEDS: ARICEPT PO SCH (09:32)
[2016-12-22] MEDS: SINEMET PO SCH (09:32)
[2016-12-22] MEDS: GEODON PO SCH ×2 (09:33→23:18)
[2016-12-22] MEDS: FLONASE NS SCH ×2 (09:33→23:19)
--- NOTE | 2016-12-22 22:01 | Progress Note ---
Assessment and Plan Assessment and plan: This is a 76 y/o female with h/o dementia, CKD stage 3 resides at [facility] presented with c/o alteration of mental status and for evaluation of worsening generalized weakness. Family members reported to EMS that the patient exhibited some drooling of saliva and appeared to have change in her mental status from her baseline possibly 2-3 hours prior to arrival. Patient noted to be confused for some time and there was a concern for seizure. Patient 's daughter was at bedside and most of the history was obtained from the daughter. She and daughter also mentioned that she is not happy about the service of personal skilled nursing and if patient does qualify she would like to place the patient at long term. Patient had a CT of the head in the ER which was unremarkable. Initial lab workup showed slightly elevated potassium and creatinine of 2.0, and unremarkable UA Possible seizure-none so far Slurred speech-rule out TIA CELIA on CKD- POA, improving. Hyperkalemia likely due to CKD h/o Alzheimer dementia Hypertension, benign essential Diabetes mellitus type 2 on insulin History of Parkinson disease DO NOT RESUSCITATE CODE STATUS Plan: Neurology input appreciated. No further seizure noted today. We did call the family member informed her of the discharge. Follow EEG report Resume all meds, ADA diet, subcutaneous insulin Resume blood pressure medications Supportive care, renal diet Placement History Interval history: Patient seen and examined this morning in no acute distress. No slurred speech. She denies any pain. Denies any nausea or vomiting. Nursing staff did not report any adverse event over the past 24-48 hours. She is tolerating her diet. Hospitalist Physical - Physical exam Narrative exam: VITAL SIGNS: Reviewed. GENERAL: The patient appeared well nourished and normally developed. Vital signs as documented. HEAD: No signs of head trauma. EYES: Pupils are equal. Extraocular motions intact. EARS: Hearing grossly intact. MOUTH: Oropharynx is normal. NECK: No adenopathy, no JVD. CHEST: Chest with clear breath sounds bilaterally. No wheezes, rales, or rhonchi. CARDIAC: Regular rate and rhythm. S1 and S2, without murmurs, gallops, or rubs. VASCULAR: No Edema. Peripheral pulses normal and equal in all extremities. ABDOMEN: Soft, without detectable tenderness. No sign of distention. No rebound or guarding, and no masses palpated. Bowel Sounds normal. MUSCULOSKELETAL: Good range of motion of all major joints. Extremities without clubbing, cyanosis or edema. NEUROLOGIC EXAM: Alert and oriented x 3. No focal sensory or strength deficits. Speech normal. Follows commands. PSYCHIATRIC: Mood normal. SKIN: No rash or lesions. - Constitutional Vitals: Temp Pulse Resp BP Pulse Ox 98.4 F 66 18 150/67 100 12/22/16 21:50 12/22/16 21:50 12/22/16 21:50 12/22/16 21:50 12/22/16 21:50 Results - Labs CBC & Chem 7: 12/21/16 03:54 12/21/16 03:54 Labs: Laboratory Last Values WBC 6.5 K/mm3 (4.5-11.0) 12/21/16 03:54 RBC 3.72 M/mm3 (3.65-5.03) 12/21/16 03:54 Hgb 10.9 gm/dl (10.1-14.3) 12/21/16 03:54 Hct 33.7 % (30.3-42.9) 12/21/16 03:54 MCV 91 fl (79-97) 12/21/16 03:54 MCH 29 pg (28-32) 12/21/16 03:54 MCHC 32 % (30-34) 12/21/16 03:54 RDW 15.3 % (13.2-15.2) H 12/21/16 03:54 Plt Count 200 K/mm3 (140-440) 12/21/16 03:54 Lymph % (Auto) 18.3 % (13.4-35.0) 12/19/16 23:17 [place] % (Auto) 3.8 % (0.0-7.3) 12/19/16 23:17 Eos % (Auto) 0.9 % (0.0-4.3) 12/19/16 23:17 Baso % (Auto) 0.6 % (0.0-1.8) 12/19/16 23:17 Lymph # 2.2 K/mm3 (1.2-5.4) 12/19/16 23:17 [place] # 0.5 K/mm3 (0.0-0.8) 12/19/16 23: Eos # 0.1 K/mm3 (0.0-0.4) 12/19/16 23:17 Baso # 0.1 K/mm3 (0.0-0.1) 12/19/16 23:17 Seg Neutrophils % 76.4 % (40.0-70.0) H 12/19/16 23:17 Seg Neutrophils # 9.1 K/mm3 (1.8-7.7) H 12/19/16 23:17 VBG pH 7.284 (7.320-7.420) L 12/19/16 23:17 Sodium 142 mmol/L (137-145) 12/21/16 03:54 Potassium 4.7 mmol/L (3.6-5.0) 12/21/16 03:54 Chloride 106.7 mmol/L (98-107) 12/21/16 03:54 Carbon Dioxide 23 mmol/L (22-30) 12/21/16 03:54 Anion Gap 17 mmol/L 12/21/16 03:54 BUN 39 mg/dL (7-17) H 12/21/16 03:54 Creatinine 1.5 mg/dL (0.7-1.2) H 12/21/16 03:54 Estimated GFR 41 ml/min 12/21/16 03:54 BUN/Creatinine Ratio 26.00 % 12/21/16 03:54 Glucose 170 mg/dL (65-100) H 12/21/16 03:54 POC Glucose 153 (70-105) H 12/22/16 07:37 Lactic Acid 1.2 mmol/L (0.7-2.0) 12/19/16 23:17 Calcium 8.6 mg/dL (8.4-10.2) 12/21/16 03:54 Total Bilirubin < 0.2 mg/dL (0.1-1.2) 12/19/16 23:17 AST 13 units/L (5-40) 12/19/16 23:17 ALT 9 units/L (7-56) 12/19/16 23:17 Alkaline Phosphatase 79 units/L (35-129) 12/19/16 23:17 NT-Pro-B Natriuret Pep 106.4 pg/mL (0-900) 12/19/16 23:17 Total Protein 7.3 g/dL (6.3-8.2) 12/19/16 23:17 Albumin 4.1 g/dL (3.9-5) 12/19/16 23:17 Albumin/Globulin Ratio 1.3 % 12/19/16 23: Lipase 25 units/L (13-60) 12/20/16 03:27 Urine Color Yellow (Yellow) 12/20/16 00:08 Urine Turbidity Clear (Clear) 12/20/16 00:08 Urine pH 5.0 (5.0-7.0) 12/20/16 00:08 Ur Specific [place] 1.013 (1.003-1.030) 12/20/16 00:08 Urine Protein <15 mg/dl mg/dL (Negative) 12/20/16 00:08 Urine Glucose (UA) Neg mg/dL (Negative) 12/20/16 00:08 Urine Ketones Neg mg/dL (Negative) 12/20/16 00:08 Urine Blood Neg (Negative) 12/20/16 00:08 Urine Nitrite Neg (Negative) 12/20/16 00:08 Urine Bilirubin Neg (Negative) 12/20/16 00:08 Urine Urobilinogen < 2.0 mg/dL (<2.0) 12/20/16 00:08 Ur Leukocyte Esterase Tr (Negative) 12/20/16 00:08 Urine WBC (Auto) < 1.0 /HPF (0.0-6.0) 12/20/16 00:08 Urine RBC (Auto) 1.0 /HPF (0.0-6.0) 12/20/16 00:08 U Epithel Cells (Auto) < 1.0 /HPF (0-13.0) 12/20/16 00:08 Urine Bacteria (Auto) 1+ /HPF (Negative) 12/20/16 00:08 Amorphous Crystals 1+ 12/20/16 00:08 Hyaline Casts 4 /LPF 12/20/16 00:08 Urine Mucus Few /HPF 12/20/16 00:08 Ketones 2.0 mg/dL (0.2-2.8) 12/19/16 23:17
[2016-12-22] MEDS: ZOCOR PO SCH (23:18)
[2016-12-22] MEDS: LEVEMIR SUB-Q SCH (23:19)
[2016-12-22] MEDS: DESYREL PO SCH (23:19)
[2016-12-23] MEDS ORDERED: APRESOLINE PO ONE (06:18)
[2016-12-23] MEDS: NOVOLOG SUB-Q SCH ×3 (08:00→17:49)
[2016-12-23] MEDS: ARICEPT PO SCH (10:52)
[2016-12-23] MEDS: FLONASE NS SCH (10:52)
[2016-12-23] MEDS: GEODON PO SCH (10:52)
[2016-12-23] MEDS: BABY ASPIRIN PO SCH (10:52)
[2016-12-23] MEDS: SINEMET PO SCH (10:52)
[2016-12-23 17:41] VITALS: BP 164/74
== END 2016-12-23 18:43 | DRG 70 ==
LOC: ED 22:02 → 4A 12-20 01:38
PROVIDERS: ADMIT Internal Medicine; ATTEND Internal Medicine
DX: G93.41 Metabolic encephalopathy (principal); N17.0 Acute kidney failure with tubular necrosis; E86.0 Dehydration; E87.5 Hyperkalemia; K21.9 Gastro-esophageal reflux disease without esophagitis; G20 Parkinson's disease; G30.9 Alzheimer's disease, unspecified; F02.80 Dementia in other diseases classified elsewhere, unspecified severity, without behavioral disturbance, psychotic disturbance, mood disturbance, and anxiety; I12.9 Hypertensive chronic kidney disease with stage 1 through stage 4 chronic kidney disease, or unspecified chronic kidney disease; E11.22 Type 2 diabetes mellitus with diabetic chronic kidney disease; N18.3 Chronic kidney disease, stage 3 (moderate); R47.81 Slurred speech; Z66 Do not resuscitate; Z80.9 Family history of malignant neoplasm, unspecified
CPT/HCPCS: 36415; 70450; 70544; 71010; 80048; 80053; 81001; 82010; 82140; 82805; 82962; 83690; 83880; 85025; 85027; 90471; 90686; 90732; 95819; 96374; G0008; G0009; G8978-GP; G8979-GP; G8980-GP; J1815; J1818; J2270